=== PATIENT | male | born 1970 | race Two or more races ===

== ENCOUNTER 2024-11-17 21:30 | Emergency (ER) | payer MEDICAID, OTHER ==
[~2024-11-17] VITALS: Ht 172.7 cm; Wt 70.6 kg
[2024-11-17 21:30] VITALS: BP 144/100; PULSE 84; RESP 16; TEMP 98.4; O2SAT 96
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
[2024-11-17] MEDS ORDERED: AUG875T PO (23:36)
[2024-11-18] MEDS ORDERED: IBUP-1456 PO (00:10)
[2024-11-18] MEDS: IBUPROFEN 600 MG TAB PO ONE (02:24)
[2024-11-18] MEDS: HYDROcodone-ACET 10/325MG TAB PO ONE (02:24)
[2024-11-18] MEDS: TETANUS-DIPTH-ACEL PERTUSSIS 0.5ML SYR Tdap IM ONE (02:25)
== END 2024-11-18 02:25 | disposition home or self-care (01) ==
LOC: ER 21:30
DX: S20.212A Contusion of left front wall of thorax, initial encounter (principal); F19.90 Other psychoactive substance use, unspecified, uncomplicated; F17.210 Nicotine dependence, cigarettes, uncomplicated; Z79.899 Other long term (current) drug therapy; W54.0XXA Bitten by dog, initial encounter; Y93.89 Activity, other specified; Y92.89 Other specified places as the place of occurrence of the external cause; Y99.8 Other external cause status
CPT/HCPCS: 71111; 90471; 90715; 96372